=== PATIENT | male | born 2000 | race African-American/Black ===

== ENCOUNTER 2023-03-11 09:57 | Emergency (ER) | payer SELFPAY ==
[~2023-03-11] VITALS: Ht 175.3 cm; Wt 64.0 kg
[2023-03-11 10:00] VITALS: TEMP 98.6; O2SAT 98
[2023-03-11 10:45] VITALS: BP 134/78; PULSE 90; RESP 16
[2023-03-11] MEDS ORDERED: IBUPROFEN 400MG TABLET PO ONE (10:45)
[2023-03-11] MEDS ORDERED: TETANUS, DIPHTHERIA, PERTUSSIS VAC/PF 0.5ML (>10YR OLD) IM ONE (10:45)
== END 2023-03-11 11:14 | disposition home or self-care (01) ==
LOC: ER 09:57
DX: M25.561 Pain in right knee (principal); Y04.0XXA Assault by unarmed brawl or fight, initial encounter; Y93.89 Activity, other specified; Y92.89 Other specified places as the place of occurrence of the external cause; Y99.8 Other external cause status
CPT/HCPCS: 90471; 90715; 99283